=== PATIENT | male | born 1985 | race Caucasian/White ===

== ENCOUNTER 2019-11-22 01:31 | Emergency (ER) | payer OTHER ==
[~2019-11-22] VITALS: Ht 177.8 cm; Wt 70.0 kg
[~2019-11-22 01:31] MED LIST: FLEXERIL10 MG PO; LORTAB 5/500 501 TAB PO; MOTRIN800 MG PO; NAPROSYN500 MG PO; PERCOCET 325 MG1 TA2 PO; PHENERGAN 25 TA25 MG PO; PROMETHAZINE12.5 M5 PO; VICODIN 500 MG-1 TAB PO; ZOFRAN 4MG T4 MG/TAB PO; ZOMIG5 MG PO
[2019-11-22 01:41] VITALS: TEMP 98.5
[2019-11-22 02:25] LABS: STREP SCREEN NEGATIVE
[2019-11-22 03:04] VITALS: BP 134/96; PULSE 95
== END 2019-11-22 03:04 | disposition home or self-care (01) ==
LOC: COL.ER 01:31
PROVIDERS: Nurse Practitioner
DX: J10.1 Influenza due to other identified influenza virus with other respiratory manifestations (principal); Z87.891 Personal history of nicotine dependence; Z90.89 Acquired absence of other organs

== ENCOUNTER 2020-02-08 21:19 | Emergency (ER) | payer OTHER ==
[~2020-02-08] VITALS: Ht 175.3 cm; Wt 69.5 kg
[2020-02-08 21:25] VITALS: TEMP 98
[2020-02-08 21:40] LABS: BASO % 0.3 % (0.0-2.0); EOS # 0.1 (0.0-0.7); EOS % 0.6 % (0-4.0); GRAN # 4.1 (1.4-6.5); HEMATOCRIT 46.1 % (42.0-52.0); HEMOGLOBIN 15.4 g/dl (13.5-18.0); LYMPH # 2.9 (1.2-3.4); LYMPH % 36.6 % (20.0-51.0); MEAN CELL VOLUME 91 fl (80.0-100.0); MEAN CORPUSCULAR HEMOGLOBIN 30 pg (27.0-31.0); MEAN CORPUSCULAR HGB CONC 33 g/dl (33.0-37.0); MEAN PLATELET VOLUME 10.1 fl (7.4-10.4); MONO # 0.8 (0.1-0.6); MONO % 10.1 % (1.7-9.3); PLATELET COUNT 263 K/mm3 (130-400); RED BLOOD COUNT 5.07 M/mm3 (4.20-5.60); REDCELL DISTRIBUTION WIDTH-CV 12.9 % (11.5-14.5)
[2020-02-08 22:16] LABS: ALANINE AMINOTRANSFERASE 32 U/L (4-49); ALBUMIN 4.8 gm/dL (3.5-5.0); ALKALINE PHOSPHATASE 88 U/L (50-136); ANION GAP 14 mmol/L (7-16); AST,SGOT 33 U/L (15-37); BILIRUBIN,TOTAL 0.7 mg/dL (0.0-1.0); BLOOD UREA NITROGEN 15 mg/dL (9-20); CALCIUM 9.7 mg/dL (8.4-10.2); CARBON DIOXIDE 24 mmol/L (22-30); CHLORIDE 100 mmol/L (98-107); CREATININE, serum 1.12 (0.66-1.25); GLUCOSE 103 mg/dL (74-106); POTASSIUM 3.4 mmol/L (3.4-5.0); SODIUM 138 mmol/L (137-145); TOTAL PROTEIN 8.6 gm/dL (6.4-8.2)
[2020-02-08 22:17] LABS: C-REACTIVE PROTEIN < 0.5 mg/dL (0.0-0.9)
[2020-02-08 23:01] LABS: COLLECTION METHOD CLEAN CATCH
[2020-02-08 23:11] LABS: MUCOUS Present /lpf; PH 5 (5-8); SQUAMOUS EPITHELIAL 0-2 /hpf; URINE APPEARANCE Cloudy; URINE BACTERIA None Seen /hpf; URINE BILIRUBIN Negative (NEGATIVE); URINE BLOOD 3+ (NEGATIVE); URINE COLOR Amber; URINE GLUCOSE Negative (NEGATIVE); URINE KETONE Negative (NEGATIVE); URINE LEUKOCYTE ESTERASE Negative (NEGATIVE); URINE NITRATE Negative (NEGATIVE); URINE PROTEIN(semi-quant) 2+ (NEGATIVE); URINE RBC >50 /hpf; URINE UROBILINOGEN Negative (NEGATIVE)
[2020-02-09] MEDS ORDERED: ZOFRAN ODT4 MG PO (00:19)
[2020-02-09] MEDS ORDERED: PERCOCET 325 MG1 TA2 PO (00:19)
[2020-02-09 00:36] VITALS: BP 131/69; PULSE 97
== END 2020-02-09 00:36 | disposition home or self-care (01) ==
LOC: COL.ER 21:19
PROVIDERS: Nurse Practitioner
DX: R10.9 Unspecified abdominal pain (principal); R31.9 Hematuria, unspecified; Z87.891 Personal history of nicotine dependence; Z87.442 Personal history of urinary calculi; Z90.89 Acquired absence of other organs
CPT/HCPCS: J1170; J1885; J2405; J7030

== ENCOUNTER 2022-06-06 18:16 | Emergency (ER) | payer OTHER ==
[~2022-06-06] VITALS: Ht 175.3 cm; Wt 62.7 kg
[~2022-06-06 18:16] MED LIST changes: +ZOFRAN ODT4 MG PO
[2022-06-06 18:33] VITALS: BP 149/78; TEMP 98.5
[2022-06-06] MEDS ORDERED: PEN-VEE K500 MG PO (21:04)
[2022-06-06 21:17] VITALS: PULSE 90
== END 2022-06-06 21:17 | disposition home or self-care (01) ==
LOC: COL.ER 18:16
DX: S09.93XA Unspecified injury of face, initial encounter (principal); Y04.0XXA Assault by unarmed brawl or fight, initial encounter